=== PATIENT | female | born 1955 | race Caucasian/White ===

== ENCOUNTER → 2017-11-16 14:23 | Outpatient (CLI) | payer OTHER, SELFPAY ==
--- NOTE | 2017-11-16 | DI.RAD.S_ITS ---
PROCEDURE: XR LUMBAR SPINE 2-3V INDICATIONS: LOW BACK PAIN TECHNIQUE: 3 views of the lumbar spine were acquired. COMPARISON: None. FINDINGS: Bones: 5 nns-nxi-jsrgnpy vertebrae are present. Mild levoscoliosis. Grade 1 spondylolisthesis L5-S1. Multilevel disc degeneration, most notably in severe at the L5-S1 level. Moderate L5-S1 facet joint arthropathy. No vertebral body compression fractures. No suspicious bony lesions. Soft tissues: Overlying bowel gas pattern is normal. No suspicious soft tissue calcifications. Vascular calcifications indicate atherosclerosis. IMPRESSION: Multilevel degenerative change, most notably at L5-S1 level. Dictated by: Nicola Adorno [facility] Interpreted: Roddy Gee MD on 11/16/2017 at 14:58 Approved by: Roddy Gee M.D. on 11/16/2017 at 15:16
== END ==
PROVIDERS: Visit Provider Family Medicine
DX: M51.37 Other intervertebral disc degeneration, lumbosacral region (principal); M54.5 Low back pain
CPT/HCPCS: 72100

== ENCOUNTER 2018-02-09 11:52 | Emergency (ER) | payer OTHER, MEDICAID, SELFPAY ==
[2018-02-09 12:03] VITALS: BP 146/77; PULSE 92; RESP 20; TEMP 36.6; O2SAT 98; BMI 23.2
[2018-02-09 12:06] VITALS: PULSE 90
--- NOTE | 2018-02-09 12:18 | DI.RAD.S_ITS ---
PROCEDURE: XR WRIST LT MIN 3V INDICATIONS: fall TECHNIQUE: 4 views of the wrist were acquired. COMPARISON: None. FINDINGS: Bones: No fractures or dislocations. No suspicious bony lesions. Scaphoid view: No visualized fracture. Soft tissues: No suspicious soft tissue calcifications. IMPRESSION: No visualized acute fracture or dislocation. However, if clinical concern and/or pain persist, short interval imaging followup in 7-10 days is recommended, as occult injury cannot be definitively excluded. Dictated by: Otilia Desir M.D. on 02/09/2018 at 12:42 Approved by: Otilia Desir M.D. on 02/09/2018 at 12:46
--- NOTE | 2018-02-09 12:18 | DI.RAD.S_ITS ---
PROCEDURE: XR ELBOW RT MIN 3V INDICATIONS: fall TECHNIQUE: 3 views of the elbow were acquired. COMPARISON: None. FINDINGS: Bones: Minimally displaced proximal radial head fracture. No suspicious bony lesions. Soft tissues: Moderate elbow joint effusion. No suspicious soft tissue calcifications. IMPRESSION: Effusion with minimally displaced proximal radial head fracture. Dictated by: Otilia Desir M.D. on 02/09/2018 at 12:46 Approved by: Otilia Desir M.D. on 02/09/2018 at 12:53
--- NOTE | 2018-02-09 12:18 | DI.RAD.S_ITS ---
PROCEDURE: XR WRIST RT MIN 3V INDICATIONS: fall TECHNIQUE: 4 views of the wrist were acquired. COMPARISON: None. FINDINGS: Bones: Corticated ossifications are present adjacent to the ulnar styloid. Scaphoid view: No visualized fracture. Soft tissues: No suspicious soft tissue calcifications. IMPRESSION: Corticated ossifications are present adjacent to the ulnar styloid suspected to be related to old injury. However, recommend correlation of point tenderness has superimposed acute injury cannot be excluded. No visualized acute fracture or dislocation. However, if clinical concern and/or pain persist, short interval imaging followup in 7-10 days is recommended, as occult injury cannot be definitively excluded. Dictated by: Oitlia Desir M.D. on 02/09/2018 at 12:40 Approved by: Otilia Desir M.D. on 02/09/2018 at 12:41
--- NOTE | 2018-02-09 12:50 | ED.UPPEXIN ---
HPI - Extremity Injury (Upper) <LAUREANO ClarkBC - Last Filed: 02/09/18 22:23> General Chief Complaint: Extremity Injury, Upper Stated Complaint: BOTH WRISTS HURT FROM PREVIOUS FALL Time Seen by Provider: 02/09/18 12:38 Source: patient Mode of arrival: ambulatory Limitations: no limitations History of Present Illness HPI narrative: Patient presents with chief complaint of right wrist and arm pain after ground level fall about 3 weeks ago while she was camping. She stated she tripped and fell and landed on an outstretched right hand. She also landed on her left hand. She complains of wrist pain bilaterally, right worse than left with decreased range of motion. She also complains of right forearm pain. Since this happened 3 weeks ago it is not getting any better and that she is concerned. She has been taking nwfl-cha-bcwxkkb pain medication as well as her prescription Vicodin. She denies any lacerations or wounds. She denies hitting her head or her neck. Related Data Home Medications Medication Instructions Recorded Confirmed albuterol sulfate [Proventil HFA] 1 - 2 puff INHALATION PRN PRN 02/09/18 02/09/18 hydrocodone-acetaminophen 1 tab PO Q6-8H PRN 02/09/18 02/09/18 loratadine 1 tab PO DAILY 02/09/18 02/09/18 metoprolol succinate 1 tab PO DAILY 02/09/18 02/09/18 naproxen 1 tab PO BIDWM 02/09/18 02/09/18 omeprazole 1 cap PO DAILY PRN 02/09/18 02/09/18 Review of Systems <CARLOS EDUARDO Clark - Last Filed: 02/09/18 22:23> Review of Systems GENERAL: Denies chills, fatigue, malaise, fever, sweats. HEENT: Denies sinus pain, ear pain, sore throat, difficulty swallowing, dizziness. RESPIRATORY: Denies dyspnea, cough, wheezing, hemoptysis, sputum. CARDIOVASCULAR: Denies chest pain, palpitations, orthopnea, edema, GASTROINTESTINAL: Denies nausea, vomiting, abdominal pain, diarrhea, constipation, melena. : Denies dysuria, frequency, incontinence, hematuria, urinary retention. MUSCULOSKELETAL: See HPI SKIN: See HPI NEUROLOGIC: Denies weakness, headache, numbness, change in speech, confusion, seizures, incoordination. PSYCHIATRIC: No concerning psychosocial issues. 12 point review of systems is negative except for those stated above Exam <RICH Clark-BC - Last Filed: 02/09/18 22:23> Narrative Exam Narrative: GENERAL: This is a well-nourished, well-developed patient, in no acute distress HEAD: Atraumatic. Normocephalic. No temporal or scalp tenderness. EYES: Pupils equal round and reactive. Extraocular motions intact. No scleral icterus. No injection or drainage. ENT: Nose without bleeding, purulent drainage or septal hematoma. Throat without erythema, tonsillar hypertrophy or exudate. Uvula midline. Airway patent. NECK: Trachea midline. No JVD or lymphadenopathy. Supple, nontender, no meningeal signs. CARDIOVASCULAR: Regular rate and rhythm without murmurs, gallops, or rubs. RESPIRATORY: Clear to auscultation. Breath sounds equal bilaterally. No increased respiratory effort. No accessory muscle use. GASTROINTESTINAL: Abdomen soft, non-tender, nondistended. No hepato-splenomegaly, or palpable masses. No guarding. EXTREMITIES: Left wrist: Generalized pain to palpation, no decreased range of motion, positive radial pulse. Right wrist: Decreased flexion and extension, significant snuffbox tenderness. Decreased ability to flex to extend wrist. Positive radial pulse. Right elbow: Patient is able to flex and extend right elbow, generalized pain to palpation. Pain with pronation and supination of right forearm. BACK: Nontender without deformity or crepitance. No flank tenderness. NEURO: AOx3. Sensation is intact bilateral upper extremities. SKIN: No rash erythema or ecchymosis noted bilateral wrists or right elbow. Or right forearm. Initial Vital Signs Initial Vital Signs: Vital Signs Temperature 97.8 F 02/09/18 12:03 Pulse Rate 92 H 02/09/18 12:03 Respiratory Rate 20 02/09/18 12:03 Blood Pressure 146/77 H 02/09/18 12:03 Pulse Oximetry 98 02/09/18 12:03 <Collette Michel DO - Last Filed: 02/10/18 09:56> Initial Vital Signs Initial Vital Signs: Vital Signs Temperature 97.8 F 02/09/18 12:03 Pulse Rate 92 H 02/09/18 12:03 Respiratory Rate 20 02/09/18 12:03 Blood Pressure 146/77 H 02/09/18 12:03 Pulse Oximetry 98 02/09/18 12:03 Procedures <CARLOS EDUARDO Clark - Last Filed: 02/09/18 22:23> Orthopedic Splinting/Casting Injury #1: Side: right Upper Extremity Injury Location: forearm and wrist Upper Extremity Immobilizer: sling/shoulder immobilizer and thumb spica Additional Comments: Pulse motor and sensory intact before and after splint and sling application. Splint applied by Araceli ALVAREZ. Course <CARLOS EDUARDO Clark - Last Filed: 02/09/18 22:23> Orders Ordered: ED Orders 02/09/18 12:18 XR elbow RT min 3V Stat XR wrist LT min 3V Stat XR wrist RT min 3V Stat Vital Signs - 8 hr 02/09/18 14:22 Pulse Rate 78 Respiratory Rate 18 Blood Pressure [Left Arm] 149/94 H Pulse Oximetry 100 <Collette Michel DO - Last Filed: 02/10/18 09:56> Orders Ordered: ED Orders 02/09/18 12:18 XR elbow RT min 3V Stat XR wrist LT min 3V Stat XR wrist RT min 3V Stat Vital Signs - 8 hr 02/09/18 14:22 Pulse Rate 78 Respiratory Rate 18 Blood Pressure [Left Arm] 149/94 H Pulse Oximetry 100 MDM - Extremity Injury (Upper) <CARLOS EDUARDO Clark - Last Filed: 02/09/18 22:23> Differential Diagnosis Differential diagnosis: Likely sprain and strain of wrist, fracture of wrist, Colles' fracture, fracture of humerus and fracture of clavicle Imaging Data right elbow xray: Radiologist's impression: [address] [address] XRay Report Signed Patient: Nasreen Nowka MR#: [id number] : 1955 Acct:[id number] Age/Sex: 62 / F Date of Service: 02/09/18 Loc: ED Accession Number: [id number] Procedure: XR elbow RT min 3V Ordering Provider: Bev Pelaez PROCEDURE: XR ELBOW RT MIN 3V INDICATIONS: fall TECHNIQUE: 3 views of the elbow were acquired. COMPARISON: None. FINDINGS: Bones: Minimally displaced proximal radial head fracture. No suspicious bony lesions. Soft tissues: Moderate elbow joint effusion. No suspicious soft tissue calcifications. IMPRESSION: Effusion with minimally displaced proximal radial head fracture. Dictated by: Otilia Desir M.D. on 02/09/2018 at 12:46 Approved by: Otilia Desir M.D. on 02/09/2018 at 12:53 left wrist xray: Radiologist's impression: [address] [address] XRay Report Signed Patient: Nasreen Nowak MR#: [id number] : 1955 Acct:[id number] Age/Sex: 62 / F Date of Service: 02/09/18 Loc: ED Accession Number: [id number] Procedure: XR wrist LT min 3V Ordering Provider: Bev Pelaez PROCEDURE: XR WRIST LT MIN 3V INDICATIONS: fall TECHNIQUE: 4 views of the wrist were acquired. COMPARISON: None. FINDINGS: Bones: No fractures or dislocations. No suspicious bony lesions. Scaphoid view: No visualized fracture. Soft tissues: No suspicious soft tissue calcifications. IMPRESSION: No visualized acute fracture or dislocation. However, if clinical concern and/or pain persist, short interval imaging followup in 7-10 days is recommended, as occult injury cannot be definitively excluded. Dictated by: Otilia Desir M.D. on 02/09/2018 at 12:42 Approved by: Otilia Desir M.D. on 02/09/2018 at 12:46 right xray: Radiologist's impression: [address] [address] XRay Report Signed Patient: Nasreen Nowak MR#: [id number] : 1955 Acct:[id number] Age/Sex: 62 / F Date of Service: 02/09/18 Loc: ED Accession Number: [id number] Procedure: XR wrist RT min 3V Ordering Provider: Bev Pelaez PROCEDURE: XR WRIST RT MIN 3V INDICATIONS: fall TECHNIQUE: 4 views of the wrist were acquired. COMPARISON: None. FINDINGS: Bones: Corticated ossifications are present adjacent to the ulnar styloid. Scaphoid view: No visualized fracture. Soft tissues: No suspicious soft tissue calcifications. IMPRESSION: Corticated ossifications are present adjacent to the ulnar styloid suspected to be related to old injury. However, recommend correlation of point tenderness has superimposed acute injury cannot be excluded. No visualized acute fracture or dislocation. However, if clinical concern and/or pain persist, short interval imaging followup in 7-10 days is recommended, as occult injury cannot be definitively excluded. Dictated by: Otilia Desir M.D. on 02/09/2018 at 12:40 Approved by: Otilia Desir M.D. on 02/09/2018 at 12:41 [facility] Narrative Medical decision making narrative: Patient presented with chief complaint of ground level fall 3 weeks ago. She was found to have a right radial head fracture. She was also found to have significant snuffbox tenderness. Given her exam, I placed her in a thumb spica splint. I gave her a sling for the radial head fracture. I referred [facility]. She states she has plenty of pain medication at home and does not need any more. I discussed at length rest ice compression elevation and monitoring for circulation of her hand. She had no questions or concerns upon discharge. Of note upon discharge she brie up with the nurse that she had been having chest pain upon arrival to the emergency department. I offered full workup that this chest pain including IV lab work EKG, but the patient declined. The patient repeatedly declined to be evaluated for the chest pain that she had upon arrival, stating that she came in only for her wrist. I discussed that she could follow up with primary care come back to emergency department at any point if needed. She has already been referred to a basket bottom machine operator. She stated understanding of our communication regarding chest pain. Discharge Plan Departure Patient Disposition: Home Clinical Impression: Fall from ground level, Fracture of head of right radius, Acute pain of right wrist Discharge Date/Time: 02/09/18 14:47 Interventions: ED Discharge Assessment Last Done: 02/09/18 14:45 Instructions: How to Use a Sling, DI for Forearm Fracture, How to Prevent Falls, How to Take Care of Your Splint, DI for Wrist Pain Activity Restrictions/Additional Instructions: I am giving you a referral to [facility]. Please follow-up with them. We have placed in a splint given the pain that you have an your wrist. You are also in a sling for your radial head fracture. Please take [id number]-tozglwk medication as needed for pain. He stated you have plenty of Vicodin at home, so I will not give you any extra. Please used rest eyes compression and elevation. Monitor for circulation of your hand. Prescriptions: No Action hydrocodone-acetaminophen 5-325 mg tablet 1 tab PO Q6-8H PRN (Reason: Pain, Moderate) RF: 0 omeprazole 20 mg capsule,delayed release(DR/EC) 1 cap PO DAILY PRN (Reason: Acid Reflux) RF: 0 metoprolol succinate 25 mg tablet extended release 24 hr 1 tab PO DAILY RF: 0 albuterol sulfate [Proventil HFA] 90 mcg/actuation HFA aerosol inhaler 1 - 2 puff Inhalation PRN PRN (Reason: Wheezing) RF: 0 loratadine 10 mg tablet 1 tab PO DAILY RF: 0 naproxen 500 mg tablet 1 tab PO BIDWM RF: 0 Referrals: [facility] [Outside] Wilfredo Cook MD [Primary Care Provider] - <Collette Michel DO - Last Filed: 02/10/18 09:56> Cosign ED Attending Manfredature Attestation: I was immediately available in the department for consultation. Documentation has been reviewed. I agree with assessment and plan.
--- NOTE | 2018-02-09 14:15 | ED_ITS ---
HPI - Extremity Injury (Upper) <LAUREANO ClarkBC - Last Filed: 02/09/18 22:23> General Chief Complaint: Extremity Injury, Upper Stated Complaint: BOTH WRISTS HURT FROM PREVIOUS FALL Time Seen by Provider: 02/09/18 12:38 Source: patient Mode of arrival: ambulatory Limitations: no limitations History of Present Illness HPI narrative: Patient presents with chief complaint of right wrist and arm pain after ground level fall about 3 weeks ago while she was camping. She stated she tripped and fell and landed on an outstretched right hand. She also landed on her left hand. She complains of wrist pain bilaterally, right worse than left with decreased range of motion. She also complains of right forearm pain. Since this happened 3 weeks ago it is not getting any better and that she is concerned. She has been taking [id number] pain medication as well as her prescription Vicodin. She denies any lacerations or wounds. She denies hitting her head or her neck. Related Data Home Medications Medication Instructions Recorded Confirmed albuterol sulfate [Proventil HFA] 1 - 2 puff INHALATION PRN PRN 02/09/18 hydrocodone-acetaminophen 1 tab PO Q6-8H PRN 02/09/18 02/09/18 loratadine 1 tab PO DAILY 02/09/18 02/09/18 metoprolol succinate 1 tab PO DAILY 02/09/18 02/09/18 naproxen 1 tab PO BIDWM 02/09/18 02/09/18 omeprazole 1 cap PO DAILY PRN 02/09/18 02/09/18 Review of Systems <CARLOS EDUARDO Clark - Last Filed: 02/09/18 22:23> Review of Systems GENERAL: Denies chills, fatigue, malaise, fever, sweats. HEENT: Denies sinus pain, ear pain, sore throat, difficulty swallowing, dizziness. RESPIRATORY: Denies dyspnea, cough, wheezing, hemoptysis, sputum. CARDIOVASCULAR: Denies chest pain, palpitations, orthopnea, edema, GASTROINTESTINAL: Denies nausea, vomiting, abdominal pain, diarrhea, constipation, melena. : Denies dysuria, frequency, incontinence, hematuria, urinary retention. MUSCULOSKELETAL: See HPI SKIN: See HPI NEUROLOGIC: Denies weakness, headache, numbness, change in speech, confusion, seizures, incoordination. PSYCHIATRIC: No concerning psychosocial issues. 12 point review of systems is negative except for those stated above Exam <RICH Clark-BC - Last Filed: 02/09/18 22:23> Narrative Exam Narrative: GENERAL: This is a well-nourished, well-developed patient, in no acute distress HEAD: Atraumatic. Normocephalic. No temporal or scalp tenderness. EYES: Pupils equal round and reactive. Extraocular motions intact. No scleral icterus. No injection or drainage. ENT: Nose without bleeding, purulent drainage or septal hematoma. Throat without erythema, tonsillar hypertrophy or exudate. Uvula midline. Airway patent. NECK: Trachea midline. No JVD or lymphadenopathy. Supple, nontender, no meningeal signs. CARDIOVASCULAR: Regular rate and rhythm without murmurs, gallops, or rubs. RESPIRATORY: Clear to auscultation. Breath sounds equal bilaterally. No increased respiratory effort. No accessory muscle use. GASTROINTESTINAL: Abdomen soft, non-tender, nondistended. No hepato-splenomegaly , or palpable masses. No guarding. EXTREMITIES: Left wrist: Generalized pain to palpation, no decreased range of motion, positive radial pulse. Right wrist: Decreased flexion and extension, significant snuffbox tenderness. Decreased ability to flex to extend wrist. Positive radial pulse. Right elbow: Patient is able to flex and extend right elbow, generalized pain to palpation. Pain with pronation and supination of right forearm. BACK: Nontender without deformity or crepitance. No flank tenderness. NEURO: AOx3. Sensation is intact bilateral upper extremities. SKIN: No rash erythema or ecchymosis noted bilateral wrists or right elbow. Or right forearm. Initial Vital Signs Initial Vital Signs: Vital Signs Temperature 97.8 F 02/09/18 12:03 Pulse Rate 92 H 02/09/18 12:03 Respiratory Rate 20 02/09/18 12:03 Blood Pressure 146/77 H 02/09/18 12:03 Pulse Oximetry 98 02/09/18 12:03 <Collette Michel DO - Last Filed: 02/10/18 09:56> Initial Vital Signs Initial Vital Signs: Vital Signs Temperature 97.8 F 02/09/18 12:03 Pulse Rate 92 H 02/09/18 12:03 Respiratory Rate 20 02/09/18 12:03 Blood Pressure 146/77 H 02/09/18 12:03 Pulse Oximetry 98 02/09/18 12:03 Procedures <CARLOS EDUARDO Clark - Last Filed: 02/09/18 22:23> Orthopedic Splinting/Casting Injury #1: Side: right Upper Extremity Injury Location: forearm and wrist Upper Extremity Immobilizer: sling/shoulder immobilizer and thumb spica Additional Comments: Pulse motor and sensory intact before and after splint and sling application. Splint applied by Araceli ALVAREZ. Course <CARLOS EDUARDO Clark - Last Filed: 02/09/18 22:23> Orders Ordered: ED Orders 02/09/18 12:18 XR elbow RT min 3V Stat XR wrist LT min 3V Stat XR wrist RT min 3V Stat Vital Signs - 8 hr 02/09/18 14:22 Pulse Rate 78 Respiratory Rate 18 Blood Pressure [Left Arm] 149/94 H Pulse Oximetry 100 <Collette Michel DO - Last Filed: 02/10/18 09:56> Orders Ordered: ED Orders 02/09/18 12:18 XR elbow RT min 3V Stat XR wrist LT min 3V Stat XR wrist RT min 3V Stat Vital Signs - 8 hr 02/09/18 14:22 Pulse Rate 78 Respiratory Rate 18 Blood Pressure [Left Arm] 149/94 H Pulse Oximetry 100 MDM - Extremity Injury (Upper) <CARLOS EDUARDO Clark - Last Filed: 02/09/18 22:23> Differential Diagnosis Differential diagnosis: Likely sprain and strain of wrist, fracture of wrist, Colles' fracture, fracture of humerus and fracture of clavicle Imaging Data right elbow xray: Radiologist's impression: [address] [address] XRay Report Signed Patient: Nasreen Nowak MR#: [id number] : 1955 Acct:[id number] Age/Sex: 62 / F Date of Service: 02/09/18 Loc: ED Accession Number: [id number] Procedure: XR elbow RT min 3V Ordering Provider: Bev Pelaez PROCEDURE: XR ELBOW RT MIN 3V INDICATIONS: fall TECHNIQUE: 3 views of the elbow were acquired. COMPARISON: None. FINDINGS: Bones: Minimally displaced proximal radial head fracture. No suspicious bony lesions. Soft tissues: Moderate elbow joint effusion. No suspicious soft tissue calcifications. IMPRESSION: Effusion with minimally displaced proximal radial head fracture. Dictated by: Otilia Desir M.D. on 02/09/2018 at 12:46 Approved by: Otilia Desir M.D. on 02/09/2018 at 12:53 left wrist xray: Radiologist's impression: [address] [address] XRay Report Signed Patient: Nasreen Nowak MR#: [id number] : 1955 Acct:[id number] Age/Sex: 62 / F Date of Service: 02/09/18 Loc: ED Accession Number: [id number] Procedure: XR wrist LT min 3V Ordering Provider: Bev Pelaez PROCEDURE: XR WRIST LT MIN 3V INDICATIONS: fall TECHNIQUE: 4 views of the wrist were acquired. COMPARISON: None. FINDINGS: Bones: No fractures or dislocations. No suspicious bony lesions. Scaphoid view: No visualized fracture. Soft tissues: No suspicious soft tissue calcifications. IMPRESSION: No visualized acute fracture or dislocation. However, if clinical concern and/or pain persist, short interval imaging followup in 7-10 days is recommended , as occult injury cannot be definitively excluded. Dictated by: Otilia Desir M.D. on 02/09/2018 at 12:42 Approved by: Otilia Desir M.D. on 02/09/2018 at 12:46 right xray: Radiologist's impression: [address] [address] XRay Report Signed Patient: Nasreen oNwak MR#: [id number] : 1955 Acct:[id number] Age/Sex: 62 / F Date of Service: 02/09/18 Loc: ED Accession Number: [id number] Procedure: XR wrist RT min 3V Ordering Provider: Bev Pelaez PROCEDURE: XR WRIST RT MIN 3V INDICATIONS: fall TECHNIQUE: 4 views of the wrist were acquired. COMPARISON: None. FINDINGS: Bones: Corticated ossifications are present adjacent to the ulnar styloid. Scaphoid view: No visualized fracture. Soft tissues: No suspicious soft tissue calcifications. IMPRESSION: Corticated ossifications are present adjacent to the ulnar styloid suspected to be related to old injury. However, recommend correlation of point tenderness has superimposed acute injury cannot be excluded. No visualized acute fracture or dislocation. However, if clinical concern and/or pain persist, short interval imaging followup in 7-10 days is recommended, as occult injury cannot be definitively excluded. Dictated by: Otilia Desir M.D. on 02/09/2018 at 12:40 Approved by: Otilia Desir M.D. on 02/09/2018 at 12:[address] [facility] Narrative Medical decision making narrative: Patient presented with chief complaint of ground level fall 3 weeks ago. She was found to have a right radial head fracture. She was also found to have significant snuffbox tenderness. Given her exam, I placed her in a thumb spica splint. I gave her a sling for the radial head fracture. I referred [facility]. She states she has plenty of pain medication at home and does not need any more. I discussed at length rest ice compression elevation and monitoring for circulation of her hand. She had no questions or concerns upon discharge. Of note upon discharge she brie up with the nurse that she had been having chest pain upon arrival to the emergency department. I offered full workup that this chest pain including IV lab work EKG, but the patient declined. The patient repeatedly declined to be evaluated for the chest pain that she had upon arrival, stating that she came in only for her wrist. I discussed that she could follow up with primary care come back to emergency department at any point if needed. She has already been referred to a bathhouse keeper. She stated understanding of our communication regarding chest pain. Discharge Plan Departure Patient Disposition: Home Clinical Impression: Fall from ground level, Fracture of head of right radius, Acute pain of right wrist Discharge Date/Time: 02/09/18 14:47 Interventions: ED Discharge Assessment Last Done: 02/09/18 14:45 Instructions: How to Use a Sling, DI for Forearm Fracture, How to Prevent Falls , How to Take Care of Your Splint, DI for Wrist Pain Activity Restrictions/Additional Instructions: I am giving you a referral to [facility]. Please follow-up with them. We have placed in a splint given the pain that you have an your wrist. You are also in a sling for your radial head fracture. Please take over -the-counter medication as needed for pain. He stated you have plenty of Vicodin at home, so I will not give you any extra. Please used rest eyes compression and elevation. Monitor for circulation of your hand. Prescriptions: No Action hydrocodone-acetaminophen 5-325 mg tablet 1 tab PO Q6-8H PRN (Reason: Pain, Moderate) RF: 0 omeprazole 20 mg capsule,delayed release(DR/EC) 1 cap PO DAILY PRN (Reason: Acid Reflux) RF: 0 metoprolol succinate 25 mg tablet extended release 24 hr 1 tab PO DAILY RF: 0 albuterol sulfate [Proventil HFA] 90 mcg/actuation HFA aerosol inhaler 1 - 2 puff Inhalation PRN PRN (Reason: Wheezing) RF: 0 loratadine 10 mg tablet 1 tab PO DAILY RF: 0 naproxen 500 mg tablet 1 tab PO BIDWM RF: 0 Referrals: [facility] [Outside] Wilfredo Cook MD [Primary Care Provider] - <Collette Michel DO - Last Filed: 02/10/18 09:56> Cosign ED Attending Manfredature Attestation: I was immediately available in the department for consultation. Documentation has been reviewed. I agree with assessment and plan.
[2018-02-09 14:22] VITALS: BP 149/94; PULSE 78; RESP 18; O2SAT 100
== END 2018-02-09 14:47 | disposition home or self-care (01) ==
PROVIDERS: Emergency Provider Nurse Practitioner Family; PCP Family Medicine
DX: S52.121A Displaced fracture of head of right radius, initial encounter for closed fracture (principal); W01.0XXA Fall on same level from slipping, tripping and stumbling without subsequent striking against object, initial encounter; Y92.833 Campsite as the place of occurrence of the external cause
CPT/HCPCS: 29125; 29240; 73080; 73110; 99282; 99283

== ENCOUNTER → 2018-02-23 11:07 | Outpatient (CLI) | payer OTHER, SELFPAY ==
--- NOTE | 2018-02-23 | DI.CT.S_ITS ---
PROCEDURE: CT UE RT WO CON INDICATIONS: FALL PAIN RIGHT WRIST TECHNIQUE: Noncontrast 1 mm axial sections acquired through the carpal bones, with coronal and sagittal reformats. COMPARISON: [facility], CR, XR WRIST LT MIN 3V, 02/09/2018, 11:58. [facility], CR, XR ELBOW RT MIN 3V, 02/09/2018, 11:58. [facility], CR, XR WRIST RT MIN 3V, 02/09/2018, 11:58. FINDINGS: Image quality: Excellent. Bones: No fracture found. Soft tissues: No ligamentous laxity or soft tissue hematoma is identified. IMPRESSION: No acute trauma found. Source of persistent scaphoid region pain after trauma is not identified. Dictated by: Roddy Gee M.D. on 02/23/2018 at 12:40 Approved by: Roddy Gee M.D. on 02/23/2018 at 12:41
== END ==
PROVIDERS: PCP Family Medicine; Visit Provider Physician Assistant
DX: M25.531 Pain in right wrist (principal)
CPT/HCPCS: 73200

== ENCOUNTER → 2019-11-16 12:07 | Outpatient (CLI) | payer MEDICARE, MEDICAID, SELFPAY ==
--- NOTE | 2019-11-16 | DI.RAD.S_ITS ---
PROCEDURE: XR KNEE LT 1TO2V INDICATIONS: Closed fracture of left tibial plateau w/routine healing TECHNIQUE: 2 views of the knee were acquired. COMPARISON: None. FINDINGS: Bones: No previously unidentified fractures or dislocations. No suspicious bony lesions. Extensive surgical repair has been performed across the proximal tibia, healed proximal fibular diaphyseal fracture. No osteomyelitis or evidence of device loosening/disruption is present. Soft tissues: No joint effusion. No suspicious soft tissue calcifications. IMPRESSION: Postoperative changes with normal alignment as discussed. Dictated by: Roddy Gee M.D. on 11/16/2019 at 13:35 Approved by: Roddy Gee M.D. on 11/16/2019 at 13:36
== END ==
PROVIDERS: PCP Family Medicine; Referring Provider Registered Nurse; Visit Provider Registered Nurse
DX: S82.142D Displaced bicondylar fracture of left tibia, subsequent encounter for closed fracture with routine healing (principal); X58.XXXD Exposure to other specified factors, subsequent encounter
CPT/HCPCS: 73560

== ENCOUNTER → 2020-12-03 12:18 | Outpatient (CLI) | payer MEDICARE, MEDICAID, SELFPAY ==
[2020-12-03 13:28] LABS: Erythrocyte Sedimentation Rate 25 MM/HR (0-20)
[2020-12-03 13:54] LABS: C-Reactive Protein Quant 1.1 mg/dL (<1.0); Uric Acid 5.9 mg/dL (2.5-6.2)
[2020-12-03 13:58] LABS: Rheumatoid Factor < 8.6 IU/mL (<12.0)
[2020-12-04 19:04] LABS: ANA Screen, IFA Positive (.)
== END ==
PROVIDERS: PCP Family Medicine; Referring Provider Orthopaedic Surgery; Visit Provider Orthopaedic Surgery
DX: M79.641 Pain in right hand (principal); M79.642 Pain in left hand
CPT/HCPCS: 36415; 84550; 85651; 86038; 86140; 86430

== ENCOUNTER 2021-09-19 10:56 | Emergency (ER) | payer MEDICARE, MEDICAID, SELFPAY ==
[2021-09-19 11:17] VITALS: BP 167/77; PULSE 82; RESP 16; TEMP 36.7; O2SAT 100; BMI 24.2
[2021-09-19] MEDS: SODIUM CHLORIDE 0.9% 500 ML 1000 ML IV (13:31)
[2021-09-19] MEDS: ONDANSETRON 4 MG ODT SL (13:31)
[2021-09-19 13:33] LABS: Add Manual Diff / Slide Review NO; Basophils Absolute Auto 100 /uL (0-100); Basophils Percent Auto 0.5 % (0-2); Eosinophils Absolute Auto 100 /uL (0-450); Eosinophils Percent Auto 0.8 % (2-4); Hemoglobin 13.5 g/dL (12.0-16.0); Lymphocytes Absolute Auto 3900 /uL (1100-4500); Lymphocytes Percent Auto 36.4 % (25-40); Mean Corpuscular HGB Conc 34.6 % (30-36); Mean Corpuscular Hemoglobin 35.2 PG (26-34); Mean Corpuscular Volume 101.8 fL (80-100); Monocytes Absolute Auto 500 /uL (0-900); Monocytes Percent Auto 4.7 % (3-14); Neutrophils Absolute Auto 6200 /uL (1500-7000); Neutrophils Percent Auto 57.6 % (50-75); Platelet Count 273 X10^3/uL (150-400); Red Blood Cell Count 3.83 X10^6/uL (4.0-5.2); Red Cell Distribution Width 13.2 % (11.6-14.8); White Blood Cell Count 10.8 X10^3/uL (4.5-11.0)
[2021-09-19 13:48] LABS: Alanine Aminotransferase 16 IU/L (<35); Albumin 4.4 g/dL (3.5-5.0); Albumin Globulin Ratio 1.3 (1.0-2.8); Alkaline Phosphatase 51 U/L (38-126); Aspartate Aminotransferase 24 IU/L (14-36); BUN Creatinine Ratio 17.1 (6-22); Bilirubin Total 0.4 mg/dL (0.2-1.3); Blood Urea Nitrogen 14 mg/dL (7-17); Calcium 9.5 mg/dL (8.4-10.2); Carbon Dioxide 24 mmol/L (22-32); Chloride 108 mmol/L (98-107); Estimated Glomerular Filt Rate > 60 mL/min (>60); Globulin 3.4 g/dL (1.7-4.1); Glucose 98 mg/dL (80-110); HEMOLYSIS 17 (0-50); Lactate (Lactic Acid) 0.9 mmol/L (0.7-2.1); Lipase 54 U/L (23-300); Potassium 3.7 mmol/L (3.4-5.1); Sodium 141 mmol/L (137-145); Total Protein 7.8 g/dL (6.3-8.2)
[2021-09-19 14:33] VITALS: BP 152/65; PULSE 74; RESP 16; O2SAT 98
--- NOTE | 2021-09-19 15:22 | ED_ITS ---
HPI - Abdominal Pain <JEANETTE Ledezma - Last Filed: 09/19/21 15:43> General Chief Complaint: Abdominal Pain Stated Complaint: diarrhea for months, something came out of me Time Seen by Provider: 09/19/21 12:54 Source: patient Mode of arrival: Ambulatory History of Present Illness HPI narrative: This is a 65-year-old female presents to the emergency department complaining of diarrhea for the last 2 months, 1-2 episodes per day, intermittent abdominal pain, primarily the right upper quadrant however she also endorses lower left quadrant pain at times. She states that her family has a history of IBS, C rohn's, and bowel issues. Patient states that she had episode yesterday, complains of nausea but no further vomiting. She has been afebrile, denies any blood in her stool other than if she has frequent stools she states her hemorrhoid bleeds. She came in today with concern that something long came out of her diarrhea this morning. She denies any current abdominal pain, chills, vomiting blood in her stool, blood in her emesis, weakness, or dizziness. She denies any significant abdominal pain. She states that she has not ultrasound of her abdomen scheduled tomorrow from her primary care provider. Patient is a smoker, states she drinks 2-3 alcoholic beverages per day, states that her vom iting episode came after 3 beers, she felt lightheaded but then she was fine. Patient has a history of GERD, takes omeprazole daily, states she needs 40 mg a day but her insurance front cover b.i.d. dosing, she states that omeprazole makes her nauseated. She denies any substance abuse. She denies any history of abdominal surgery. Related Data Home Medications Medication Instructions Recorded Confirmed albuterol sulfate 90 mcg/actuation 1 - 2 puff INHALATION PRN PRN 02/09/18 02/09/18 aerosol inhaler hydrocodone 5 mg-acetaminophen 325 1 tab PO Q6-8H PRN 02/09/18 02/09/18 mg tablet loratadine 10 mg tablet 1 tab PO DAILY 02/09/18 02/09/18 metoprolol succinate 25 mg 1 tab PO DAILY 02/09/18 02/09/18 tablet,extended release 24 hr naproxen 500 mg tablet 1 tab PO BIDWM 02/09/18 02/09/18 omeprazole 20 mg capsule,delayed 1 cap PO DAILY PRN 02/09/18 02/09/18 release Previous Rx's Medication Instructions Recorded omeprazole magnesium 20 mg 20 mg PO BID #60 tab 09/19/21 tablet,delayed release Allergies Allergy/AdvReac Type Severity Reaction Status Date / Time Penicillins Allergy Hives Verified 09/19/21 11:17 Review of Systems <JEANETTE Ledezma - Last Filed: 09/19/21 15:43> Review of Systems Narrative: General: denies fever, chills, malaise, sweats, fatigue Head/Neck: denies headache, neck pain, dizziness Eyes: denies visual changes, eye pain Cardio: denies chest pain, palpitations, edema Respiratory: denies dyspnea, cough, orthopnea GI: denies current abdominal pain, endorses mild nausea, denies any vomiting today, endorses 1 episode of diarrhea today : denies dysuria, hematuria, urinary retention, frequency or incontinence MSK: denies joint pain, muscle weakness Skin: denies rash, itching, skin lesions or other Neuro: denies numbness, tingling Patient History <JEANETTE Ledezma - Last Filed: 09/19/21 15:43> Social History Smoking Status: Current every day smoker Smoking Status: Current every day smoker alcohol intake frequency: 0-2 drinks per day Substance Use Type: does not use Exam <JEANETTE Ledezma - Last Filed: 09/19/21 15:43> Narrative Exam Narrative: Independently reviewed vitals signs and nursing notes. General: cooperative, comfortable, in no acute distress, well developed and well groomed Head: atraumatic, symmetrical facial expressions Neck: supple, atraumatic, without lymphadenopathy. Eyes: pupils equal round and reactive, EOMI, conjunctiva normal Nose: nares patent, no rhinorrhea Mouth/Throat: uvula midline, moist mucus membranes Cardiovascular: regular rate and rhythm, no peripheral edema, warm extremities Respiratory: normal effort, able to speak in complete sentences, no audible wheezing, stridor, or rales. No retractions or tachypnea. GI: abdomen soft, nontender to palpation times all quadrants nondistended, no masses, no exquisite tenderness with exam, without guarding or rebound. No CVA tenderness MSK: moves all extremities, ambulatory w/steady gait, neurovascularly intact, no weakness Skin: brisk capillary refill, no rash, no erythema Neuro: normal speech and cognition, A&O x3, normal tone Psych: mental status is grossly normal, congruent mood, normal affect, pleasant and cooperative Initial Vital Signs Initial Vital Signs: Vital Signs Temperature 98.1 F 09/19/21 11:17 Pulse Rate 82 09/19/21 11:17 Respiratory Rate 16 09/19/21 11:17 Blood Pressure 167/77 H 09/19/21 11:17 Pulse Oximetry 100 09/19/21 11:17 <Collette Michel DO - Last Filed: 09/19/21 20:46> Initial Vital Signs Initial Vital Signs: Vital Signs Temperature 98.1 F 09/19/21 11:17 Pulse Rate 82 09/19/21 11:17 Respiratory Rate 16 09/19/21 11:17 Blood Pressure 167/77 H 09/19/21 11:17 Pulse Oximetry 100 09/19/21 11:17 Course <JEANETTE Ledezma - Last Filed: 09/19/21 15:43> Orders Ordered: ED Orders 09/19/21 13:25 CBC Auto Diff [Complete Blood Count AUTO DIFF] Stat CMP [Comprehensive Metabolic Panel] Stat Lactate (Lactic Acid) Stat Lipase Stat Discontinued Medications Sodium Chloride (Normal Saline 0.9%) 500 mls @ 1,000 mls/hr IV BOLUS PRN PRN Reason: Fluid replacement Last Infusion: 09/19/21 14:30 Dose: 0 mls/hr Documented by: Admin: 09/19/21 13:31 Dose: 1,000 mls/hr Documented by: LETICIA Ondansetron HCl (Ondansetron 4 Mg Odt) 4 mg SL NOW ONE Stop: 09/19/21 13:08 Last Admin: 09/19/21 13:31 Dose: 4 mg Documented by: LETICIA Vital Signs Vital signs: Vital Signs - 8 hr 09/19/21 14:33 Pulse Rate 74 Respiratory Rate 16 Blood Pressure 152/65 H Pulse Oximetry 98 <Collette Michel DO - Last Filed: 09/19/21 20:46> Orders Ordered: ED Orders 09/19/21 13:25 CBC Auto Diff [Complete Blood Count AUTO DIFF] Stat CMP [Comprehensive Metabolic Panel] Stat Lactate (Lactic Acid) Stat Lipase Stat Discontinued Medications Sodium Chloride (Normal Saline 0.9%) 500 mls @ 1,000 mls/hr IV BOLUS PRN PRN Reason: Fluid replacement Last Infusion: 09/19/21 14:30 Dose: 0 mls/hr Documented by: Admin: 09/19/21 13:31 Dose: 1,000 mls/hr Documented by: LETICIA Ondansetron HCl (Ondansetron 4 Mg Odt) 4 mg SL NOW ONE Stop: 09/19/21 13:08 Last Admin: 09/19/21 13:31 Dose: 4 mg Documented by: LETICAI Vital Signs Vital signs: Vital Signs - 8 hr 09/19/21 14:33 Pulse Rate 74 Respiratory Rate 16 Blood Pressure 152/65 H Pulse Oximetry 98 MDM - Abdominal Pain <JEANETTE Ledezma - Last Filed: 09/19/21 15:43> Lab Data Result diagrams: 09/19/21 13:25 09/19/21 13:25 Labs: Lab Results 09/19/21 09/19/21 09/19/21 Range/Units 13:25 13:25 13:25 WBC 10.8 (4.5-11.0) X10^3/uL RBC 3.83 L (4.0-5.2) X10^6/uL Hgb 13.5 (12.0-16.0) g/dL Hct 39.0 (36-46) % MCV 101.8 H (80-100) fL MCH 35.2 H (26-34) PG MCHC 34.6 (30-36) % RDW 13.2 (11.6-14.8) % Plt Count 273 (150-400) X10^3/uL Neut % (Auto) 57.6 (50-75) % Lymph % (Auto) 36.4 (25-40) % Sequoyah % (Auto) 4.7 (3-14) % Eos % (Auto) 0.8 L (2-4) % Baso % (Auto) 0.5 (0-2) % Neut # (Auto) 6200 (6645-2272) /uL Lymph # (Auto) 3900 (2910-7379) /uL Sequoyah # (Auto) 500 (0-900) /uL Eos # (Auto) 100 (0-450) /uL Baso # (Auto) 100 (0-100) /uL Sodium 141 (137-145) mmol/L Potassium 3.7 (3.4-5.1) mmol/L Chloride 108 H (98-107) mmol/L Carbon Dioxide 24 (22-32) mmol/L BUN 14 (7-17) mg/dL Creatinine 0.82 (0.52-1.04) mg/dL Estimated GFR > 60 (>60) mL/min BUN/Creatinine Ratio 17.1 (6-22) Glucose 98 (80-110) mg/dL Lactate 0.9 (0.7-2.1) mmol/L Calcium 9.5 (8.4-10.2) mg/dL Total Bilirubin 0.4 (0.2-1.3) mg/dL AST 24 (14-36) IU/L ALT 16 (<35) IU/L Alkaline Phosphatase 51 (38-126) U/L Total Protein 7.8 (6.3-8.2) g/dL Albumin 4.4 (3.5-5.0) g/dL Globulin 3.4 (1.7-4.1) g/dL Albumin/Globulin Ratio 1.3 (1.0-2.8) Lipase 54 (23-300) U/L Point of care testing: Urine Dip Bedside Urine Glucose Negative Bedside Urine Bilirubin - Negative Bedside Urine Ketone - Negative Urine Specific Gibson 1.015 Bedside Urine Occult Blood - Negative Bedside Urine pH 6.0 Bedside Urine Protein - Negative Bedside Urine Urobilinogen - Negative Bedside Urine Nitrite - Negative Bedside Urine Leukocytes - Negative Esterase MDM Narrative Medical decision making narrative: This is a 65-year-old female with history loose stools, constipation and diarrhea, GERD on omeprazole who presents to the emergency department complaining of 2 months of diarrhea, and occasional right upper quadrant pain. Patient saw her primary care provider who ordered her an ultrasound which is scheduled tomorrow of her abdomen. Patient is afebrile, without any significant tenderness to palpation of her abdomen, states that she drinks approximately 3 alcoholic beverages per day either beer or wine, she is a daily smoker, has been taking her omeprazole as prescribed. States that it makes her nauseated to take 40 mg at 1 so she would like this split into 2 doses a day. I gave her an order for this. Her laboratory work is unremarkable. No leukocytosis, no significant signs of dehydration, no gross electrolyte abnormalities, creatinine is 0.8, no priors to compare to, lipase 50 for, no elevation in her liver enzymes. Notably, patient had a positive [place], CRP of 1.1, elevated ESR of 25 on her labs 12/03/2020. Patient has underlying autoimmune disease, I presume this is most likely IBS with diarrhea and constipation, however differential includes Crohn's, ulcerative colitis, GERD, hiatal hernia, peptic ulcer disease, cholelithiasis, cholecystitis, diverticulitis. Patient's abdomen was nontender to palpation, her recommend because her vitals are stable, her labs are unremarkable, that she have her scheduled outpatient ultrasound tomorrow as it does not appear to be an urgent matter today. She is tolerating p.o., denies any significant problems today. Recommend close follow-up with her primary care provider after her ultrasound, and schedule a colonoscopy and endoscopy within the next year. Patient was given strict return precautions for any bleeding in her emesis or stool, fever, significant or exquisite abdominal pain, or any other concerning symptoms. Patient is appropriate and amenable to discharge home. Vital signs are stable on repeat examination is unremarkable. Patient has been informed of results. Patient has been given strict return to ER precautions for any new or worsening symptoms. Patient understands to follow up closely with outpatient providers as instructed. Patient understands plan and agrees to discharge home. All questions and concerns answered at this time. <Collette Michel, DO - Last Filed: 09/19/21 20:46> Lab Data Labs: Lab Results 09/19/21 09/19/21 09/19/21 Range/Units 13:25 13:25 13:25 WBC 10.8 (4.5-11.0) X10^3/uL RBC 3.83 L (4.0-5.2) X10^6/uL Hgb 13.5 (12.0-16.0) g/dL Hct 39.0 (36-46) % MCV 101.8 H (80-100) fL MCH 35.2 H (26-34) PG MCHC 34.6 (30-36) % RDW 13.2 (11.6-14.8) % Plt Count 273 (150-400) X10^3/uL Neut % (Auto) 57.6 (50-75) % Lymph % (Auto) 36.4 (25-40) % Sequoyah % (Auto) 4.7 (3-14) % Eos % (Auto) 0.8 L (2-4) % Baso % (Auto) 0.5 (0-2) % Neut # (Auto) 6200 (0108-3129) /uL Lymph # (Auto) 3900 (4020-3755) /uL Sequoyah # (Auto) 500 (0-900) /uL Eos # (Auto) 100 (0-450) /uL Baso # (Auto) 100 (0-100) /uL Sodium 141 (137-145) mmol/L Potassium 3.7 (3.4-5.1) mmol/L Chloride 108 H (98-107) mmol/L Carbon Dioxide 24 (22-32) mmol/L BUN 14 (7-17) mg/dL Creatinine 0.82 (0.52-1.04) mg/dL Estimated GFR > 60 (>60) mL/min BUN/Creatinine Ratio 17.1 (6-22) Glucose 98 (80-110) mg/dL Lactate 0.9 (0.7-2.1) mmol/L Calcium 9.5 (8.4-10.2) mg/dL Total Bilirubin 0.4 (0.2-1.3) mg/dL AST 24 (14-36) IU/L ALT 16 (<35) IU/L Alkaline Phosphatase 51 (38-126) U/L Total Protein 7.8 (6.3-8.2) g/dL Albumin 4.4 (3.5-5.0) g/dL Globulin 3.4 (1.7-4.1) g/dL Albumin/Globulin Ratio 1.3 (1.0-2.8) Lipase 54 (23-300) U/L Point of care testing: Urine Dip Bedside Urine Glucose Negative Bedside Urine Bilirubin - Negative Bedside Urine Ketone - Negative Urine Specific Gibson 1.015 Bedside Urine Occult Blood - Negative Bedside Urine pH 6.0 Bedside Urine Protein - Negative Bedside Urine Urobilinogen - Negative Bedside Urine Nitrite - Negative Bedside Urine Leukocytes - Negative Esterase Discharge Plan Departure Patient Disposition: Home Clinical Impression: IBS (irritable bowel syndrome) Qualifiers: Irritable bowel syndrome type: with both diarrhea and constipation Qualified Code(s): K58.2 - Mixed irritable bowel syndrome Gastroesophageal reflux disease Qualifiers: Esophagitis presence: esophagitis presence not specified Qualified Code(s): K21.9 - Gastro-esophageal reflux disease without esophagitis Instructions: Irritable Bowel Syndrome, GERD Diet Activity Restrictions/Additional Instructions: *You have been diagnosed with GERD, and likely irritable bowel syndrome. This could also be Crohn's, please follow-up with your primary doctor to see if an antidepressant would be helpful for your symptoms. Please take your omeprazole morning and night for the next month, and see if your provider can order this for you in this way. Please stick to a low-fat diet, stay hydrated, try to avoid alcohol in excess. Thank you for trusting us with your care, I hope that you start feeling better soon. I recommend having a colonoscopy as well. *What to do: *Please continue to take your regular medications as directed. [x] New medication prescriptions sent to your pharmacy: [ ] [ ] New medication written as a paper prescription [ ] No new medications given *Please follow up with your primary care provider in 2-3 days, call for an appointment. Let them know you were seen in the Emergency Department and that we asked that you be seen for follow-up. We will electronically transmit a record of today's note if your PCP is in our system *If you do not have a primary care provider please contact [phone] to establish care with one of the [facility] primary care providers. *Return to Emergency Department if you should have any new, worsening or concerning symptoms, such as [fever greater than 101F, chills, worsening pain, persistent vomiting or other bothersome symptoms] Prescriptions: New omeprazole magnesium 20 mg tablet,delayed release (DR/EC) 20 mg PO BID Qty: 60 0RF No Action hydrocodone-acetaminophen 5-325 mg tablet 1 tab PO Q6-8H PRN (Reason: Pain, Moderate) 0RF Label Comments: TK 1 T PO Q SIX TO EIGHT H PRN P omeprazole 20 mg capsule,delayed release(DR/EC) 1 cap PO DAILY PRN (Reason: Acid Reflux) 0RF Label Comments: TK 1 C PO QD PRN metoprolol succinate 25 mg tablet extended release 24 hr 1 tab PO DAILY 0RF Label Comments: TK 1 T PO QD albuterol sulfate [Proventil HFA] 90 mcg/actuation HFA aerosol inhaler 1 - 2 puff Inhalation PRN PRN (Reason: Wheezing) 0RF Label Comments: INL 1 TO 2 INHALATIONS PO Q 6 H PRF WHZ loratadine 10 mg tablet 1 tab PO DAILY 0RF Label Comments: TK 1 T PO QD naproxen 500 mg tablet 1 tab PO BIDWM 0RF Label Comments: TK 1 T PO BID WF PRN Referrals: Wilfredo Cook MD [Primary Care Provider] - <Collette Michel DO - Last Filed: 09/19/21 20:46> Cosign ED Attending Cosignature Attestation: I was immediately available in the department for consultation. Documentation has been reviewed. I agree with assessment and plan.
== END 2021-09-19 14:34 | disposition home or self-care (01) ==
PROVIDERS: Emergency Provider Nurse Practitioner Critical Care Medicine; PCP Family Medicine
DX: K58.2 Mixed irritable bowel syndrome (principal); K21.9 Gastro-esophageal reflux disease without esophagitis; R11.0 Nausea
CPT/HCPCS: 36415; 80053; 81003; 83605; 83690; 85025; 99283; 99284

== ENCOUNTER → 2021-09-27 14:22 | Outpatient (CLI) | payer MEDICARE, MEDICAID, SELFPAY ==
--- NOTE | 2021-09-27 | DI.US.S_ITS ---
PROCEDURE: US ABDOMEN LIMITED INDICATIONS: Right upper quadrant pain TECHNIQUE: Real-time focused scanning was performed of the abdomen, with image documentation. COMPARISON: None. FINDINGS: The liver demonstrates normal size and normal overall echogenicity. Within the right liver dome, there is a cluster of echogenic foci with shadowing seen that measures 18 x 15 x 18 mm. No findings of gallstones or sludge are seen. The gallbladder wall is not thickened, measuring 3 mm or less. No specific pericholecystic fluid is seen. The sonographic Altamirano sign is negative. There is no biliary dilatation, the common bile duct measures 3 mm. No significant pancreatic abnormality is seen on these images. IMPRESSION: The gallbladder demonstrates a normal sonographic appearance. No biliary dilatation is seen. Within the right liver dome, there is an area of echogenic foci with shadowing. Calcification is considered to be most likely. If clinically appropriate, please consider a follow-up liver protocol CT for further evaluation. Dictated by: Aj Marsh M.D. on 09/27/2021 at 14:18 Approved by: Aj Marsh M.D. on 09/27/2021 at 14:19
--- NOTE | 2021-09-27 | DI.MG.S_ITS ---
BILATERAL DIGITAL SCREENING MAMMOGRAM 3D/2D WITH CAD: 09/27/2021 CLINICAL: Routine screening. Baseline exam. No prior exams were available for comparison. There are scattered fibroglandular elements in both breasts. Current study was also evaluated with a Computer Aided Detection (CAD) system. There is an oval low density focal asymmetry with an indistinct and circumscribed margin in the left breast at 11 o'clock middle depth. No other significant masses, calcifications, or other findings are seen in either breast. IMPRESSION: INCOMPLETE: NEEDS ADDITIONAL IMAGING EVALUATION The oval low density focal asymmetry in the left breast is indeterminate. Mediolateral and spot compression views as well as additional views with possible ultrasound are recommended. This exam was interpreted at Station ID: [id number]. NOTE: For mammograms, a report in lay terms will be sent to the patient. Approximately 15% of breast malignancies will not be visualized mammographically. In the management of a palpable breast mass, a negative mammogram must not discourage biopsy of a clinically suspicious lesion. Electronically Signed By: Loc morris/jose:09/27/2021 16:39:28 letter sent: Additional Imaging Needed ACR BI-RADS Category 0: Incomplete [id number]
== END ==
PROVIDERS: PCP Family Medicine; Referring Provider Family Medicine; Visit Provider Family Medicine
DX: Z12.31 Encounter for screening mammogram for malignant neoplasm of breast (principal); R10.11 Right upper quadrant pain; E73.9 Lactose intolerance, unspecified
CPT/HCPCS: 76705; 77063; 77067

== ENCOUNTER → 2021-10-16 11:49 | Outpatient (CLI) | payer MEDICARE, MEDICAID, SELFPAY ==
--- NOTE | 2021-10-16 11:52 | DI.CT.S_ITS ---
PROCEDURE: CT ABDOMEN WO/W CON INDICATIONS: Right upper quadrant pain TECHNIQUE: 4 phase scanning was performed. Non-contrast 5 mm axial sections acquired from the diaphragm to the iliac crests. Following the administration of intravenous contrast, 5 mm thick arterial-phase, portal venous-phase, and 5-minute delayed phase images were acquired through the liver. 5 mm thick coronal and sagittal reformats were performed. For radiation dose reduction, the following was used: automated exposure control, adjustment of mA and/or kV according to patient size. COMPARISON: [facility], , US ABDOMEN LIMITED, 09/27/2021, 14:44. FINDINGS: Image quality: Excellent. Lung bases: Lung bases are clear. Heart size is normal. Liver: Benign calcification at the dome of the liver corresponding to the ultrasound finding. No arterial hyperenhancing or washout observations. No suspicious focal lesion. Other solid organs: Gallbladder is decompressed. No calcified gallstones. Biliary system is non dilated. CBD measures 0.6 cm. Pancreas is normal in morphology. Spleen is normal in size and enhancement. No adrenal nodules. Both kidneys demonstrate normal size and enhancement, without hydronephrosis or nephrolithiasis. 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 Nodes and vessels: No retroperitoneal or mesenteric adenopathy by size criteria. Aorta and inferior vena cava are normal in size. Conventional and patent hepatic arterial anatomy. Portal vein is patent. Bowel and peritoneum: The stomach is only partially distended. No small bowel obstruction. Colon is within normal limits. No free fluid or air. Bones: No suspicious bony lesions. Multilevel DDD. No vertebral body compression fractures. Miscellaneous: No ventral hernias. IMPRESSION: Source for abdominal pain is not identified. Benign calcified granuloma at the dome of the liver. No suspicious hepatic lesion. Dictated by: Shane Barragan M.D. on 10/16/2021 at 12:36 Approved by: Shane Barragan M.D. on 10/16/2021 at 12:44
== END ==
PROVIDERS: PCP Family Medicine; Referring Provider Family Medicine; Visit Provider Family Medicine
DX: R10.11 Right upper quadrant pain (principal)
CPT/HCPCS: 74170

== ENCOUNTER → 2021-12-02 12:43 | Outpatient (CLI) | payer MEDICARE, MEDICAID, SELFPAY | PROVIDERS: PCP Family Medicine; Referring Provider Family Medicine; Visit Provider Family Medicine | DX: M81.8 Other osteoporosis without current pathological fracture (principal); Z78.0 Asymptomatic menopausal state; Z13.820 Encounter for screening for osteoporosis; M85.851 Other specified disorders of bone density and structure, right thigh; M85.852 Other specified disorders of bone density and structure, left thigh | CPT/HCPCS: 77080 ==

== ENCOUNTER → 2022-01-08 09:59 | Outpatient (CLI) | payer MEDICARE, MEDICAID, SELFPAY ==
--- NOTE | 2022-01-08 | DI.US.S_ITS ---
LIMITED ULTRASOUND OF LEFT BREAST: 01/08/2022 CLINICAL: Patient returns today to evaluate a focal asymmetry in the left breast. Comparison is made to exams dated: 01/08/2022 mammogram and 09/27/2021 mammogram - [facility]. Color flow and real-time ultrasound of the left breast 11 o'clock region were performed. Smart scale images of the real-time examination were reviewed. There is a benign 0.4 cm x 0.4 cm x 0.4 cm oval cyst with a smooth internal wall in the left breast at 11 o'clock anterior depth 3 cm from the nipple. This oval cyst is anechoic and hypoechoic with posterior acoustic enhancement. This correlates with mammography findings. Color flow imaging demonstrates that there is no vascularity present. IMPRESSION: BENIGN There is no sonographic evidence of malignancy. The 0.4 cm x 0.4 cm x 0.4 cm oval cyst in the left breast is benign. Return to annual mammogram screening schedule is recommended. This exam was interpreted at Station ID: [id number]. Electronically Signed By: Brijesh cortés/jose:01/08/2022 10:46:56 letter sent: Normal Exam Ultrasound BI-RADS: 2 Benign
--- NOTE | 2022-01-08 | DI.MG.S_ITS ---
UNILATERAL LEFT DIGITAL DIAGNOSTIC MAMMOGRAM 3D/2D WITH ADDITIONAL VIEWS: 01/08/2022 CLINICAL: Additional evaluation requested from prior study. Comparison is made to exam dated: 09/27/2021 mammogram - [facility]. There are scattered fibroglandular elements in left breast. There is a 0.4 cm oval low density focal asymmetry with a circumscribed margin in the left breast at 11 o'clock middle depth. This is seen in additional views. No other significant masses or calcifications are seen in the breast. IMPRESSION: INCOMPLETE: NEEDS ADDITIONAL IMAGING EVALUATION The 0.4 cm oval low density focal asymmetry in the left breast is indeterminate. An ultrasound is recommended. Based on the Tyrer Cuzick model (a risk assessment model) the patient's lifetime risk is 5.7% and her 10 year risk is 3.0%. According to the ACR, ACS, and NCCN guidelines, an annual breast MRI exam along with mammogram is recommended if the patient's lifetime risk is 20% or greater. This exam was interpreted at Station ID: [id number]. NOTE: For mammograms, a report in lay terms will be sent to the patient. Approximately 15% of breast malignancies will not be visualized mammographically. In the management of a palpable breast mass, a negative mammogram must not discourage biopsy of a clinically suspicious lesion. Electronically Signed By: Brijesh cortés/jose:01/08/2022 10:45:49 ACR BI-RADS Category 0: Incomplete 3340F
== END ==
PROVIDERS: PCP Family Medicine; Referring Provider Family Medicine; Visit Provider Family Medicine
DX: R92.8 Other abnormal and inconclusive findings on diagnostic imaging of breast (principal); N60.02 Solitary cyst of left breast
CPT/HCPCS: 76642; 77065; G0279

== ENCOUNTER → 2022-04-01 12:39 | Outpatient (CLI) | payer MEDICARE, MEDICAID, SELFPAY ==
--- NOTE | 2022-04-01 12:41 | DI.RAD.S_ITS ---
PROCEDURE: XR CHEST 2V INDICATIONS: Hypertention TECHNIQUE: 2 views of the chest were acquired. COMPARISON: [facility], CT, CT ABDOMEN WO/W CON, 10/16/2021, 12:05. FINDINGS: Surgical changes and devices: None. Lungs and pleura: Lungs are clear. No pleural effusions or pneumothorax. Mediastinum: Mediastinal contours are normal. Heart size is normal. Bones and chest wall: No suspicious bony abnormalities. Soft tissues appear unremarkable. IMPRESSION: No acute cardiopulmonary disease. Dictated by: Nicola Adorno [facility] Interpreted: Otilia Desir MD on 04/01/2022 at 12:55 Approved by: Otilia Desir M.D. on 04/01/2022 at 15:39
== END ==
PROVIDERS: PCP Family Medicine; Referring Provider Family Medicine; Visit Provider Family Medicine
DX: I10 Essential (primary) hypertension (principal)
CPT/HCPCS: 71046

== ENCOUNTER → 2022-07-21 14:31 | Outpatient (CLI) | payer MEDICARE, MEDICAID, SELFPAY ==
--- NOTE | 2022-07-21 | DI.MRI.S_ITS ---
PROCEDURE: MR LUMBAR SPINE WO CON INDICATIONS: LUMBAR SPONDYLOSIS TECHNIQUE: Noncontrast sagittal T1 spin echo and T2 fast echo, sagittal STIR, and T2 fast spin echo through the lumbar spine. In cases with scoliosis, additional coronal T2 fast spin echo may be performed. COMPARISON: [facility], CT, CT ABDOMEN WO/W CON, 10/16/2021, 12:05. FINDINGS: Image quality: Excellent. Alignment and Curvature: 6 mm degenerative anterolisthesis of L5 on S1. Prior CT demonstrates no L5 pars defects. Bone Marrow: Marrow is of normal overall signal. No acute vertebral body compression fractures. Spinal Cord: Conus medullaris terminates at the L1-L2 level. Visualized cord demonstrates normal signal and size. Paraspinous Soft Tissues: No paravertebral masses. T11-T12: No canal stenosis or foraminal stenosis. T12-L1: Mild disc bulge. No canal stenosis or foraminal stenosis. L1-L2: Moderately severe chronic disc height loss. Disc bulge. Mild facet hypertrophy. No canal stenosis or foraminal stenosis. L2-L3: Tgoe-os-igpbmusp disc height loss. Posterior disc bulge. Mild facet hypertrophy. No canal stenosis or foraminal stenosis. L3-L4: Disc bulge. Facet and ligament hypertrophy. Mild canal stenosis. No significant foraminal stenosis. L4-L5: Posterior disc bulge. Facet and ligament hypertrophy. Epidural lipomatosis. Moderate canal stenosis. Mild right foraminal narrowing. Mild to moderate left foraminal narrowing. L5-S1: Anterolisthesis of L5 on S1. Posterior disc bulge. Prominent facet hypertrophy. No canal stenosis. Moderate to severe bilateral foraminal narrowing with a degree of bilateral foraminal L5 nerve root impingement. IMPRESSION: 1. Multilevel facet arthropathy. 2. Canal stenosis is mild at L3-L4, and moderate at L4-L5 3. Multilevel foraminal narrowing as described above. This includes moderate to severe bilateral foraminal narrowing at L5-S1. Dictated by: Favian Lanza M.D. on 07/21/2022 at 16:52 Approved by: Favian Lanza M.D. on 07/21/2022 at 17:20
== END ==
PROVIDERS: PCP Family Medicine; Referring Provider Orthopaedic Surgery Orthopaedic Surgery of the Spine; Visit Provider Orthopaedic Surgery Orthopaedic Surgery of the Spine
DX: M47.816 Spondylosis without myelopathy or radiculopathy, lumbar region (principal); M47.817 Spondylosis without myelopathy or radiculopathy, lumbosacral region; M48.061 Spinal stenosis, lumbar region without neurogenic claudication; M48.07 Spinal stenosis, lumbosacral region
CPT/HCPCS: 72148

== ENCOUNTER → 2024-08-27 | Outpatient (CLI) | payer MEDICARE, MEDICAID, SELFPAY ==
--- NOTE | 2024-08-27 11:43 | DI.MG.S_ITS ---
MM screening mammo BI: 08/27/2024. BI-RADS: 2 CLINICAL: 68-year old female for bilateral screening mammogram. Tyrer-Cuzick lifetime risk of 3.0%. No personal or first-degree family history of breast cancer. PRIOR EXAMS 01/08/2022, 09/27/2021. MAMMOGRAPHY TECHNIQUE: 2D and 3D (tomosynthesis) digital mammographic views obtained, with additional images as needed for full coverage. Current study was also evaluated with a Computer Aided Detection (CAD) system. DENSITY B. There are scattered areas of fibroglandular density. MAMMOGRAPHY FINDINGS Right: No suspicious mass, asymmetry, microcalcification, or other abnormality seen. Left: Typically-benign vascular calcifications noted. IMPRESSION: Right * No evidence of malignancy. Left * No evidence of malignancy with benign findings. RECOMMENDATIONS Bilateral * Annual screening mammography. OVERALL ASSESSMENT CATEGORY BI-RADS-2: Benign. The [employer] recommends annual screening mammography beginning at age 40 for women with average risk of breast cancer. ELECTRONICALLY SIGNED: Shane Barragan M.D. on 08/30/2024 at 05:14:37 PM PT Interpreting Station ID: [id number]
== END ==
LOC: MAMMO 11:42
PROVIDERS: PCP Family Medicine; Referring Provider Family Medicine; Visit Provider Family Medicine
DX: Z12.31 Encounter for screening mammogram for malignant neoplasm of breast (principal)
CPT/HCPCS: 77063; 77067

== ENCOUNTER → 2024-09-07 12:51 | Outpatient (CLI) | payer MEDICARE, MEDICAID, SELFPAY ==
--- NOTE | 2024-09-07 12:53 | DI.RAD.S_ITS ---
PROCEDURE: XR DEXA AXIAL SKELETON INDICATIONS: SCREENING FOR OSTEOPOROSIS AND LUNG CANCER COMPARISON: [facility], , XR DEXA AXIAL SKELETON, 12/02/2021, 13:01. FINDINGS: Lumbar Spine: Bone mineral density 0.948 g/cm2, T score -0.9. Left Femoral Neck: Bone mineral density 0.615 g/cm2, T score -2.1. Left Hip: Bone mineral density 0.753 g/cm2, T score -1.6. Fracture Risk Calculation (when applicable): 10-year fracture risk of a major osteoporotic fracture 12 percent and of a hip fracture 2.3 percent. (T score greater or equal to -1.0 to: NORMAL) (T score from -1.1 to -2.4: OSTEOPENIA) (T score less than or equal to -2.5: OSTEOPOROSIS) IMPRESSION: Osteopenia Follow-up guidelines as follows: Osteoporosis: Consider a repeat DEXA and Vertebral Fracture Assessment (VFA) exam in 2 years or sooner if medically necessary, to reassess this patient's status. Osteopenia: Consider a repeat DEXA in 2-3 years to reassess this patient's status, or if there is a new clinical indication. Normal: Consider a repeat DEXA in 5 years or sooner, or if there is a new clinical indication. All treatment decisions require clinical judgment and consideration of individual patient factors, including patient preferences, comorbidities, previous drug use, risk factors not captured in the FRAX model (e.g., frailty, falls, vitamin D deficiency, increased bone turnover, interval significant decline in bone density ) and possible under- or over-estimation of fracture risk by FRAX. In addition, the NOF Guide recommends that FDA-approved medical therapies be considered in postmenopausal women and men age >= 50 years with a: * Hip or vertebral (clinical or morphometric) fracture * T-score of <=-2.5 at the spine or hip * Ten-year fracture probability by FRAX of >= 3% for hip fracture or >=20% for major osteoporotic fracture. Dictated by: Kalpesh Hugo M.D. on 09/07/2024 at 13:45 Approved by: Kalpesh Hugo M.D. on 09/07/2024 at 13:46
== END ==
PROVIDERS: PCP Family Medicine; Referring Provider Family Medicine; Visit Provider Family Medicine
DX: M81.0 Age-related osteoporosis without current pathological fracture (principal); Z78.0 Asymptomatic menopausal state; M85.852 Other specified disorders of bone density and structure, left thigh
CPT/HCPCS: 77080